=== PATIENT | male | born 1955 | race Caucasian/White ===

== ENCOUNTER 2019-04-09 16:34 | Emergency (ER) | payer MEDICARE, OTHER ==
--- NOTE | 2019-04-09 16:50 | EDM.PDOC ---
<CesarioHarmeet - Last Filed: 04/09/19 18:21> ED HPI GENERAL MEDICAL PROBLEM - General Chief Complaint: Lower Extremity Injury/Pain Stated Complaint: AMBULANCE Time Seen by Provider: 04/09/19 16:45 - Related Data Allergies Allergy/AdvReac Type Severity Reaction Status Date / Time No Known Allergies Allergy Verified 04/09/19 18:25 Review of Systems - Review of Systems Review Of Systems: ROS reveals no pertinent complaints other than HPI. ED EXAM, GENERAL - Physical Exam Exam: See Below ED TRAUMA EXTREMITY PROCEDURES - Joint Reduction Site: Hip (L) Sedation: Conscious Sedation Pre-Procedure NV Status: Normal Post-Procedure NV Status: Normal Technique: Traction/Counter Traction Joint Reduction Complication Description: Unable to reduce with traction, counter traction, Captain davion or Stimpsons technique despite consious sedation. Course - Vital Signs Last Recorded V/S: Last Vital Signs Temp 98.8 F 04/09/19 18:05 Pulse 72 04/09/19 18:26 Resp 16 04/09/19 18:26 BP 126/64 04/09/19 18:26 Pulse Ox 95 04/09/19 18:26 - Orders/Labs/Meds Meds: Medications Discontinued Medications Generic Name Dose Route Start Last Admin Trade Name Freq PRN Reason Stop Dose Admin Diazepam 5 mg 04/09/19 16:58 04/09/19 17:18 Valium IV 04/09/19 16:59 5 mg ONETIME ONE Administration Diazepam Confirm 04/09/19 18:38 04/10/19 07:01 Valium Administered 04/09/19 18:39 Not Given Dose 5 mg .ROUTE .STK-MED ONE Hydromorphone HCl 1 mg 04/09/19 17:12 04/10/19 07:00 Dilaudid IVPUSH 04/09/19 17:13 Not Given ONETIME ONE Hydromorphone HCl Confirm 04/09/19 17:22 04/09/19 18:25 Dilaudid Administered 04/09/19 17:23 Not Given Dose 2 mg .ROUTE .STK-MED ONE Hydromorphone HCl Confirm 04/09/19 17:35 04/09/19 18:25 Dilaudid Administered 04/09/19 17:36 Not Given Dose 2 mg .ROUTE .STK-MED ONE Hydromorphone HCl 2 mg 04/09/19 17:20 10/04/19 17:35 Dilaudid IVPUSH 1 mg Q2H PRN Administration Pain (severe 7-10) Sodium Chloride 1,000 mls @ 125 mls/hr 04/09/19 17:15 04/09/19 17:20 Normal Saline IV 125 mls/hr ASDIRECTED LUCIA Administration Sodium Chloride 10 ml 04/09/19 16:58 Saline Flush FLUSH ASDIRECTED PRN Keep Vein Open Departure - Departure Time of Disposition: 19:00 Disposition: DC/Tfer to Acute Hospital 02 Condition: Undetermined Clinical Impression: Dislocation of hip, left, closed Qualifiers: Encounter type: initial encounter Qualified Code(s): S73.005A - Unspecified dislocation of left hip, initial encounter - Discharge Information Referrals: PCP,None [Primary Care Provider] - Forms: ED Department Discharge - Problem List & Annotations (1) Dislocation of hip, left, closed SNOMED Code(s): 258902515 Code(s): S73.005A - UNSPECIFIED DISLOCATION OF LEFT HIP, INITIAL ENCOUNTER Status: Acute Priority: High Qualifiers: Encounter type: initial encounter Qualified Code(s): S73.005A - Unspecified dislocation of left hip, initial encounter - Problem List Review Problem List Initiated/Reviewed/Updated: Yes - Assessment/Plan Plan: Left hip unable to be reduced with multiple methods and attempts despite good counter traction and hands-on, and sedation. Patient to be transferred to [facility] ER for further care under Orthopedics. NPO requested by [place]. <Irena Fernandez - Last Filed: 04/12/19 08:33> ED HPI GENERAL MEDICAL PROBLEM - General Source of Information: Reports: Patient, EMS, RN History Limitations: Reports: No Limitations - History of Present Illness INITIAL COMMENTS - FREE TEXT/NARRATIVE: 63 yr male presents via ambulance with pain to left hip. States he was landing a fish and got a cramp in his leg and thinks it is dislocated. [place]. Friend is with him. States no health history. States hx of ankle fracture in the past, but no other bone or joint injury in the past. No HTN, no HLD, no diabetes, no thyroid concern. 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 Left Hip Pain Score (Numeric/FACES): 0 Review of Systems - Review of Systems Review Of Systems: See Below Constitutional: Reports: No Symptoms Eyes: Reports: No Symptoms Ears: Reports: No Symptoms Nose: Reports: No Symptoms Mouth/Throat: Reports: No Symptoms Respiratory: Reports: No Symptoms Cardiovascular: Reports: No Symptoms GI/Abdominal: Reports: No Symptoms Musculoskeletal: Reports: Other (left hip pain) Neurological: Reports: No Symptoms Psychiatric: Reports: No Symptoms ED EXAM, GENERAL - Physical Exam Exam: See Below Exam Limited By: No Limitations General Appearance: Alert, No Apparent Distress Ears: Hearing Grossly Normal Throat/Mouth: Normal Voice, No Airway Compromise Head: Atraumatic, Normocephalic Respiratory/Chest: No Respiratory Distress, Lungs Clear, Normal Breath Sounds Cardiovascular: Regular Rate, Rhythm, No Edema Peripheral Pulses: 2+: Dorsalis Pedis (L), Dorsalis Pedis (R) Extremities: No Pedal Edema Neurological: Alert, Oriented, Normal Cognition Psychiatric: Normal Affect, Normal Mood Skin Exam: Warm, Dry, Normal Color Course - Vital Signs Last Recorded V/S: Last Vital Signs Temp 98.8 F 04/09/19 18:05 Pulse 72 04/09/19 18:26 Resp 16 04/09/19 18:26 BP 126/64 04/09/19 18:26 Pulse Ox 95 04/09/19 18:26 - Orders/Labs/Meds Meds: Medications Discontinued Medications Generic Name Dose Route Start Last Admin Trade Name Derickq PRN Reason Stop Dose Admin Diazepam 5 mg 04/09/19 16:58 04/09/19 17:18 Valium IV 04/09/19 16:59 5 mg ONETIME ONE Administration Diazepam Confirm 04/09/19 18:38 04/10/19 07:01 Valium Administered 04/09/19 18:39 Not Given Dose 5 mg .ROUTE .STK-MED ONE Hydromorphone HCl 1 mg 04/09/19 17:12 04/10/19 07:00 Dilaudid IVPUSH 04/09/19 17:13 Not Given ONETIME ONE Hydromorphone HCl Confirm 04/09/19 17:22 04/09/19 18:25 Dilaudid Administered 04/09/19 17:23 Not Given Dose 2 mg .ROUTE .STK-MED ONE Hydromorphone HCl Confirm 04/09/19 17:35 04/09/19 18:25 Dilaudid Administered 04/09/19 17:36 Not Given Dose 2 mg .ROUTE .STK-MED ONE Hydromorphone HCl 2 mg 04/09/19 17:20 04/09/19 17:35 Dilaudid IVPUSH 1 mg Q2H PRN Administration Pain (severe 7-10) Sodium Chloride 1,000 mls @ 125 mls/hr 04/09/19 17:15 04/09/19 17:20 Normal Saline IV 125 mls/hr ASDIRECTED LUCIA Administration Sodium Chloride 10 ml 04/09/19 16:58 Saline Flush FLUSH ASDIRECTED PRN Keep Vein Open - Re-Assessments/Exams Free Text/Narrative Re-Assessment/Exam: 04/09/19 17:04 X-ray completed and displace left hip. Pt did have bilateral hip replacement at least a couple years ago. He also had a left knee replacement. Pt rates pain a 6/10. Consult with Dr Nassar and ordered Valium 5 mg IV, Saline lock now.
[2019-04-09] MEDS ORDERED: Sodium Chloride 0.9% 10 ML Syringe FLUSH PRN (16:58)
[2019-04-09] MEDS ORDERED: diazePAM 5 MG/ML MDV IV ONE (16:58)
[2019-04-09] MEDS ORDERED: HYDROmorphone 2 MG/ML Syringe IVPUSH ONE (17:12)
[2019-04-09] MEDS ORDERED: Sodium Chloride 0.9% 1,000 ML IV SCH (17:15)
[2019-04-09] MEDS: HYDROmorphone 2 MG/ML Syringe IVPUSH PRN ×3 (17:20→17:35)
[2019-04-09] MEDS ORDERED: HYDROmorphone 2 MG/ML SDV ONE ×2 (17:22→17:35)
[2019-04-09] MEDS ORDERED: diazePAM 5 MG/ML MDV ONE (18:38)
--- NOTE | 2019-04-11 10:41 | CR ---
Date of Service: 04/09/19 Clinical Data: left hip pain, unable to walk PELVIS AND LEFT HIP: The patient is status post bilateral total hip arthroplasty. There is dislocation of the left hip prosthesis with superior dislocation of the femoral component with respect to the acetabular component. No fractures. IMPRESSION: Dislocated left hip prosthesis. [id number] MTDD
== END 2019-04-09 18:45 ==
LOC: LB.ED 16:34
DX: T84.021A Dislocation of internal left hip prosthesis, initial encounter (principal)
CPT/HCPCS: 27265; 73502; 96361; 96374; 99284; A0425; A0429; J1170; J3360; J7030